=== PATIENT | male | born 1945 | race Caucasian/White ===

== ENCOUNTER 2018-08-25 18:47 | Observation (INO) ==
[2018-08-25 19:34] LABS: Hematocrit 39.6 % (37.5-50.1); Hemoglobin 13.5 g/dL (12.9-16.9); Mean Corpuscular HGB Conc 34.1 g/dL (31.6-35.5); Mean Corpuscular Hemoglobin 29.3 pg (28.0-33.3); Mean Corpuscular Volume 86.1 fL (83.0-100.0); Platelet Count 175 K/mcL (140-400); Red Cell Distribution Width 13.1 % (11.5-14.5); Segmented Neutrophils % 92.8 %
[2018-08-25 19:35] LABS: Basophils % 0.1 %; Eosinophils # 0.1 K/mcL (0.0-0.6); Eosinophils % 0.4 %; Immature Granulocytes % 0.9 % (0-4); Lymphocytes # 0.2 K/mcL (0.6-4.6); Lymphocytes % 1.5 %; Monocytes # 0.6 K/mcL (0.0-1.3); Monocytes % 4.3 %; Neutrophils # 13.2 K/mcL (1.6-8.9)
[2018-08-25 19:41] LABS: INR 1.3; Prothrombin Time 14.6 Seconds (9.4-12.1)
--- NOTE | 2018-08-25 19:42 | Emergency Department Note ---
Disposition Clinical Impression: Generalized weakness, Acute kidney injury Chest pain Qualifiers: Chest pain type: unspecified Qualified Code(s): R07.9 - Chest pain, unspecified Disposition: Admitted As Inpatient Condition: Good Time of Disposition: 20:44 Chest Pain HPI - General Chief Complaint: ED Chest Pain Stated Complaint: chest pain, weakness Time Seen by Provider: 08/25/18 18:53 Source: patient, family Limitations: physical limitation Vital Signs Reviewed: Yes Nursing Notes Reviewed: Yes - History of Present Illness HPI Narrative: 72-year-old male history of CAD 1 stent, hypertension, diabetes, chronic Jovel presents to the emergency department with chest pain and weakness. Over the past 24 hours reports of weakness increased tiredness and intermittent chest pain. He woke up around noon with intermittent chest pain described as an ache in the midsternal left chest wall without radiation or associated shortness of breath nausea or diaphoresis. Symptoms lasted approximately a few minutes and initially resolved on his own. He had recurrence and then took 2 baby aspirin. He did not have his nitroglycerin available or else he would have taken it. He is currently chest pain free over the past 3 hours. Denies any leg swelling. He is currently being treated for urinary tract infection with Bactrim on day 3. He has been feeling warm at home but no documented fevers. No cough or congestion. States that has been several years since his last cardiac evaluation by the [facility]. he has a chronic indwelling Jovel catheter due to bladder issues over the past year. He currently follows with the [facility] in [place]. His stent was placed in [facility] in 2001 Pt complaint: chest pain Severity scale (1-10): 3 - Related Data Home Medications Medication Instructions Recorded Confirmed Albuterol Sulfate [Albuterol 90 mcg IH Q4-6H PRN 08/25/18 08/25/18 Inhaler] Atorvastatin [Lipitor] 40 mg PO HS 08/25/18 08/25/18 Lantus 30 units SQ BID 08/25/18 08/25/18 Meclizine 12.5 mg PO TID 08/25/18 08/25/18 Metoprolol 50 mg PO DAILY 08/25/18 08/25/18 Nitroglycerin 0.4 mg SL Q5MIN 08/25/18 08/25/18 Novolog 26 units SQ TID 08/25/18 08/25/18 Omeprazole 20 mg PO BID 08/25/18 08/25/18 Phenazopyridine 50 mg PO DAILY PRN 08/25/18 08/25/18 Tiotropium 2.5 mcg 08/25/18 Tramadol HCl 50 mg BID 08/25/18 08/25/18 Allergies Allergy/AdvReac Type Severity Reaction Status Date / Time bacitracin AdvReac Rash Verified 01/30/18 08:57 [From Neosporin ([id number])] Neomycin AdvReac Rash Verified 01/30/18 08:57 [From Neosporin ([id number])] polymyxin B AdvReac Rash Verified 01/30/18 08:57 [From Neosporin ([id number])] All systems ED: reviewed and negative except as stated. Review of Systems: As Per HPI Constitutional: Reports: fever (Tactile), weakness. Denies: chills ENT ED: Denies: congestion Cardiovascular: Reports: chest pain Respiratory: Denies: cough, dyspnea Gastrointestinal: Denies: abdominal pain, nausea Genitourinary: Reports: as per HPI Musculoskeletal: Denies: back pain Integumentary: Denies: rash, abrasion Neurological: Denies: headache, confusion Chest Pain PMH - Past Medical History Medical history: Reports: arthritis, cancer, COPD, coronary artery disease, diabetes, GERD, hypertension, myocardial infarction Surgical history: Reports: appendectomy Psychiatric history: Reports: no psych history - Social History Smoking Status: Former smoker Alcohol use: Reports: none Drug use: Reports: none Physical Exam - General Limitations: physical limitation General appearance: alert, obese - Head Head exam: atraumatic, normocephalic, normal inspection - Eye Eye exam: Present: normal appearance, PERRL, EOMI - ENT ENT exam: normal exam, normal oropharynx, mucous membranes dry, other (appears dehydrated with chapped lips) - Neck Neck exam: Present: normal inspection, full ROM, trachea midline - Chest Chest inspection: Present: normal inspection, symmetric chest wall rise - Respiratory Respiratory exam: Present: normal lung sounds bilaterally. Absent: respiratory distress, wheezes - Cardiovascular Cardiovascular exam: Present: regular rate, normal rhythm, normal heart sounds. Absent: systolic murmur, diastolic murmur - Expanded Cardiovascular Exam Peripheral pulses: 2+: radial (R), radial (L) - Abdominal Exam Abdominal exam: Present: soft, Non-Tender, normal bowel sounds. Absent: te nderness, distention, guarding, rebound, rigidity - Male exam: Present: other (Chronic indwelling Jovel catheter) - Extremities Exam Extremities exam: Present: normal inspection, full ROM, normal capillary refill. Absent: tenderness, pedal edema, calf tenderness - Back Exam Back exam: Present: normal inspection, full ROM. Absent: tenderness - Neurological Exam Neurological exam: Present: alert, oriented X3 - Psychiatric Psychiatric exam: Present: normal affect, normal mood - Skin Skin exam: Present: warm, dry, intact, normal color. Absent: rash, cyanosis, diaphoresis Course Course Narrative: Patient presents with chest pain and weakness. Currently being treated for urinary tract infection. Chest pain free at this time. History of 1 stent placement. Chest pain workup initiated. He has a chronic indwelling catheter and will obtain a urinalysis from new catheter. He has taken 324 mg aspirin at home. - Reevaluation(s) Reevaluation #1: Troponin 0.03. Mild leukocytosis. He does have what appears to be acute kidney injury 1.4 creatinine, no prior. Chest x-ray did not reveal any abnormal findings. He continues to be chest pain free. Patient will be admitted for chest pain workup given his history. Will also treat them with Rocephin for his suspected urinary tract infection that he has been treated for 3 days. We will exchange is fully catheter in and send down urinalysis and culture. Patient was slightly hypotensive and will give 500 mL normal saline bolus. Impression is chest pain, weakness and acute kidney injury. Time: 20:48 - Consultations Consultation #1: Spoke with on-call hospitalist mary grace Fernandez to admit for chest pain and weakness with YAO and concomitant UTI. No further orders at this time. Time: 20:55 Vital Signs Temperature 98.3 F 08/25/18 19:03 Pulse Rate 81 08/25/18 19:03 Respiratory Rate 20 08/25/18 19:03 Blood Pressure 96/21 08/25/18 19:03 O2 Sat by Pulse Oximetry 94 08/25/18 19:03 Temperature 98.3 F 08/25/18 19:03 Pulse Rate 80 08/25/18 20:54 Respiratory Rate 16 08/25/18 20:54 Blood Pressure 110/57 01/26/19 20:54 O2 Sat by Pulse Oximetry 96 08/25/18 20:54 Oxygen Delivery Oxygen Delivery Room Air Chest Pain - MDM Narrative Medical decision making narrative: Patient was discussed with my attending physician who agrees with ED management and final disposition. They independently evaluated the patient. Please refer to their attestation to this encounter for additional information. This note was generated by [employer] voice recognition software and as a result grammatical or spelling errors may occur using this program. - Medical Records Medical records reviewed: Yes I reviewed the patient's medical records. - Lab Data Lab results reviewed: Yes I reviewed the patient's lab results. Result diagrams: 08/25/18 19:03 08/25/18 19:21 Lab Results 08/25/18 08/25/18 08/25/18 Range/Units 18:53 19:03 19:21 WBC 14.2 H (4.3-11.1) K/mcL RBC 4.60 (4.19-5.50) M/mcL Hgb 13.5 (12.9-16.9) g/dL Hct 39.6 (37.5-50.1) % MCV 86.1 (83.0-100.0) fL MCH 29.3 (28.0-33.3) pg MCHC 34.1 (31.6-35.5) g/dL RDW 13.1 (11.5-14.5) % Plt Count 175 (140-400) K/mcL MPV 10.0 (9.4-12.4) fL Immature Gran % 0.9 (0-4) % Seg Neutrophils % 92.8 % Lymphocytes % 1.5 % Monocytes % 4.3 % Eosinophils % 0.4 % Basophils % 0.1 % Neutrophils # 13.2 H (1.6-8.9) K/mcL Lymphocytes # 0.2 L (0.6-4.6) K/mcL Monocytes # 0.6 (0.0-1.3) K/mcL Eosinophils # 0.1 (0.0-0.6) K/mcL Basophils # 0.0 (0.0-0.2) K/mcL PT 14.6 H (9.4-12.1) Seconds INR 1.3 APTT 26.6 (26.0-36.0) Seconds Sodium 131 L (136-145) mEq/L Potassium 4.3 (3.5-5.1) mEq/L Chloride 99 (98-107) mEq/L Carbon Dioxide 21 L (23-29) mEq/L BUN 20 (8-23) mg/dL Creatinine 1.42 H (0.70-1.30) mg/dL Est GFR ( Amer) 59 L (> 60) Est GFR (Non-Af Amer) 49 L (> 60) BUN/Creatinine Ratio 14 (6-26) Glucose 315 H (70-105) mg/dL Calculated Osmolality 287 (280-300) Calcium 8.9 (8.6-10.3) mg/dL Troponin I 0.03 (< 0.04) ng/mL - Radiology Data Radiology results reviewed: Yes I reviewed the patient's radiology results. Chest X-Ray 08/25/18 18:53 IMPRESSION: No evidence of acute cardiopulmonary disease. D/ / David Andrade MD / David Andrade MD Interpreting Provider: David Andrade MD - EKG Data EKG attestation: Yes I reviewed and interpreted this EKG. EKG results narrative: EKG performed 1902 rhythm of 79 beats per minute with Q waves seen in the inferior leads, good R wave progression, no ST elevation or depression, QTC prolonged at 651. There is no old EKG available for comparison at this time. No acute ischemic changes. Heart Score - Score History: Slightly Suspicious EKG: Non Specific repolarisation Disturbance Age: Greater than 65 Risk Factors: Equal/Greater than 3 risk factor or history of atherosclerotic disease Troponin: 1-3x normal limit HEART Score Total: 6 Attestation Statement - Attestation Attestation: I, Tato Pitts, examined this patient and my medical decision-making was reviewed with the BASKETBALL PLAYER/PA/Advanced Practice Nurse/Resident Physician. I agree with the documented findings, disposition and treatment plan as described except to the extent set forth below. 72-year-old male presents emergency Department with concerns of acute onset chest pain as well as weakness and fatigue over the past 4 hours. Patient has a history of 3 stents, he reported chest pain that was a pressure in the center of his chest that did not radiate earlier today. It was associated with diaphoresis and shortness of breath. Denies recent trauma. Patient does have a chronic Jovel and states he had a subjective fever. Jovel is not been changed in the past 3 weeks. No cough, chills, vomiting, diarrhea, hematochezia, melena. Initial troponin negative. EKG did not show evidence of acute STEMI. Patient felt comfortable with plan for admission to hospital for further care and evaluation.
[2018-08-25 19:44] LABS: Activated Partial Thrombo Time 26.6 Seconds (26.0-36.0)
[2018-08-25] MEDS ORDERED: 0.9 % Sodium Chloride 500 ML IVC ONE (19:48)
[2018-08-25] MEDS ORDERED: Lidocaine Jelly 6ml 1 APPL/6 ML JEL.PF.APP TP ONE (20:15)
[2018-08-25 20:32] LABS: Troponin I 0.03 ng/mL (< 0.04)
[2018-08-25 20:33] LABS: Calcium 8.9 mg/dL (8.6-10.3); Potassium 4.3 mEq/L (3.5-5.1)
[2018-08-25] MEDS ORDERED: cefTRIAXone 1,000 MG in Water for inj. (sterile) 20 ML 10 ML IVP ONE (20:52)
[2018-08-25] MEDS ORDERED: Aspirin 81 MG TAB.CHEW PO ONE (21:12)
[2018-08-25 22:02] LABS: Bilirubin,Urine Negative (Negative); Blood,Urine Large (Negative); Clarity,Urine Cloudy (Clear); Color,Urine Yellow (Yellow); Glucose,Urine (UA) >=1000 mg/dL (Normal); Ketones,Urine Negative (Negative); Leukocyte Esterase,Urine Moderate (Negative); Nitrite,Urine Negative (Negative); PH,Urine 5.5 pH Units (5.0-8.0); Protein,Urine 30 mg/dL (Neg-Trace); Specific Gravity,Urine > 1.030 (1.010-1.025); Urobilinogen,Urine Normal (Normal)
[2018-08-25 22:03] LABS: Bacteria,Urine None Seen per hpf (None-Few); Hyaline Casts,Urine None Seen per lpf (None-Few); Squamous Epithelial Cell,Urine Many per lpf (None-Few); WBC,Urine TNTC per hpf (0-3)
[2018-08-26] MEDS ORDERED: Naloxone 0.4 MG/ML INJ IVP PRN (00:36)
--- NOTE | 2018-08-26 00:45 | Internal Med History&Physical ---
Date of Encounter: 08/26/18 Time of Encounter: 02:15 Internal Medicine - H&P: HPI Chief complaint: Chest pain Admitted From: Emergency Dept Plans for Post Hospital Care: Home History of present illness: Mr. Malone is a 72 year old male Patient presented to the emergency room with chest pain. He says over the last 24 hours he has had some weakness and intermittent chest pain that began after he woke up around noon. He describes it as a dull ache in the mid sternal left side of his chest without radiation or shortness of breath. The symptoms last for a few minutes and then resolve once they recurred he tried taking 2 baby aspirins at home. Upon arrival to the ER he had been chest pain-free for the last 3 hours. Of note patient was being treated for urinary tract infection outpatient and was on day 3 of his Bactrim. He typically follows up with the [facility] and it has been several years since his last evaluation for heart problems. He has a chronic indwelling Jovel catheter due to urinary dysfunction. In the emergency room patient's vital signs initially were within normal limits, CBC showed a white count of 14.2 but otherwise within normal limits. Patient's INR was 1.3, BMP showed sodium of 131 creatinine of 1.42 and a glucose of 315. Urinalysis showed large blood but negative nitrites and moderate leukocyte esterase. Chest x-ray performed showed no acute cardiopulmonary disease. Patient's initial troponin was 0.03. EKG showed normal sinus rhythm with no ST elevations or depressions. He was admitted to the hospital for further workup and management. Upon my evaluation, patient states that he has feeling much better. His chest pain has nearly resolved. He denies nausea, vomiting, diarrhea, constipation and abdominal pain. He is lying comfortably in the hospital bed. Past Med Surg Social Fam HX - Past Medical History Medical history: arthritis, cancer, COPD, coronary artery disease, diabetes, GERD, hypertension, myocardial infarction Additional medical history: diverticulosis,chf, Prostate cancer, Alexei's esophagus Psychiatric history: no psych history - Past Surgical History Surgical History: appendectomy Additional surgical history: heart cath - Social History Smoking Status: Former smoker Alcohol use: none Drug use: none - Family History Mother Hx Family Psychosocial Disorders: Yes (ETOH) Father Hx Family Cardiac Disorders: Yes (RI, CHF) Internal Medicine - H&P: Meds Albuterol Sulfate [Albuterol Inhaler] 90 mcg IH Q4-6H PRN 08/25/18 [History] Atorvastatin [Lipitor] 40 mg PO HS 08/25/18 [History] Lantus 30 units SQ BID 08/25/18 [History] Meclizine 12.5 mg PO TID 08/25/18 [History] Metoprolol 50 mg PO DAILY 08/25/18 [History] Nitroglycerin 0.4 mg SL Q5MIN 08/25/18 [History] Novolog 26 units SQ TID 08/25/18 [History] Omeprazole 20 mg PO BID 08/25/18 [History] Phenazopyridine 50 mg PO DAILY PRN 08/25/18 [History] Tiotropium 2.5 mcg 08/25/18 [History] Tramadol HCl 50 mg BID 08/25/18 [History] Allergy/AdvReac Type Severity Reaction Status Date / Time bacitracin AdvReac Rash Verified 01/30/18 08:57 [From Neosporin ([id number])] Neomycin AdvReac Rash Verified 01/30/18 08:57 [From Neosporin ([id number])] polymyxin B AdvReac Rash Verified 01/30/18 08:57 [From Neosporin ([id number])] All Systems PM: A 10-system review of systems was performed and is negative for pertinent findings except as documented above in the HPI. - Constitutional Vitals: Temp Pulse Resp BP Pulse Ox 98.2 F 72 16 127/79 92 08/25/18 22:17 08/25/18 22:17 08/25/18 22:17 08/25/18 22:17 08/25/18 22:17 General appearance: Present: cooperative, A&O X 3, pleasant, no acute distress, answers questions appropriately Exam: - - Head Head exam: Present: normal inspection - Eye Eye exam: Present: EOMI, normal appearance - Respiratory Respiratory exam: Present: CTAB. Absent: rales, respiratory distress, rhonchi, wheezes - Cardiovascular Cardiovascular exam: Present: RRR. Absent: diastolic murmur, systolic murmur - GI/Abdominal GI/Abdominal exam: Present: normal bowel sounds, soft. Absent: tenderness - Extremities Exam Extremities exam: Present: warm, radial pulses palpable and symmetrical. Absent: calf tenderness, pedal edema, tenderness - Neurological Exam Neurological exam: Present: no focal deficits, strengths equal and symetr throughout. Absent: motor sensory deficit, facial droop, speech deficit - Skin Skin exam: Present: dry, normal color, warm Internal Med - H&P Results - Labs CBC & Chem 7: 08/26/18 01:42 08/26/18 01:42 Labs: Short CBC 08/25/18 Range/Units 19:03 WBC 14.2 H (4.3-11.1) K/mcL Hgb 13.5 (12.9-16.9) g/dL Hct 39.6 (37.5-50.1) % Plt Count 175 (140-400) K/mcL Neutrophils # 13.2 H (1.6-8.9) K/mcL BMP 08/25/18 19:21 Sodium 131 L Potassium 4.3 Chloride 99 Carbon Dioxide 21 L BUN 20 Creatinine 1.42 H Glucose 315 H Calcium 8.9 Cardiac Enzymes 08/25/18 Range/Units 19:21 Troponin I 0.03 (< 0.04) ng/mL Urine 08/25/18 Range/Units 21:53 Urine Color Yellow (Yellow) Urine Clarity Cloudy A (Clear) Urine pH 5.5 (5.0-8.0) pH Units Ur Specific [place] > 1.030 H (1.010-1.025) Urine Protein 30 H (Neg-Trace) mg/dL Urine Glucose (UA) >=1000 H (Normal) mg/dL - Impressions ITS Impressions Chest X-Ray 08/25/18 18:53 IMPRESSION: No evidence of acute cardiopulmonary disease. D/ / David Andrade MD / David Andrade MD Interpreting Provider: David Andrade MD - Assessment and plan (1) Chest pain Current Visit: Yes Status: Acute Assessment and plan: Patient chest pain improved. Initial troponin emergency room 0.03. EKG in the emergency room showed no acute ischemic changes but did show a prolonged QTC of 651. Continue to trend troponins Cardiac monitoring Echocardiogram in the morning Repeat EKG in the morning Qualifiers: Chest pain type: unspecified Qualified Code(s): R07.9 - Chest pain, un specified (2) Urinary tract infection Current Visit: Yes Status: Acute Assessment and plan: Urine culture obtained in the emergency room, patient was already started treatment outpatient. Follow-up urine culture Continue ceftriaxone Monitor for worsening signs of infection Qualifiers: Urinary tract infection type: catheter-associated UTI Indwelling urinary catheter type: indwelling urethral catheter Encounter type: initial encounter Qualified Code(s): T83.511A - Infection and inflammatory reaction due to indwelling urethral catheter, initial encounter; N39.0 - Urinary tract infection, site not specified (3) Hematuria Current Visit: Yes Status: Acute Assessment and plan: Patient did have blood on his urinalysis. He does have a Jovel catheter placed however could be related to traumatic catheter. Follow-up with repeat UA after treatment of urinary tract infection completed to monitor for resolution Qualifiers: Hematuria type: unspecified type Qualified Code(s): R31.9 - Hematuria, unspecified (4) Diabetes Current Visit: Yes Status: Acute Assessment and plan: Patient is an insulin-dependent diabetic. Blood sugars in the emergency room were 315 Diabetic diet Continue to monitor sugars with meals and at night Insulin sliding scale as needed Qualifiers: Diabetes mellitus type: type 2 Diabetes mellitus shelter insulin use: with oysterman use Diabetes mellitus complication status: with hyperglycemia Qualified Code(s): E11.65 - Type 2 diabetes mellitus with hyperglycemia; Z79.4 - correction (current) use of insulin (5) Acute kidney injury Current Visit: Yes Status: Acute Assessment and plan: Patient's creatinine elevated to 1.42. Unclear if he has history of kidney disease IV fluid hydration Repeat labs in the morning (6) Hyponatremia Current Visit: Yes Status: Acute Assessment and plan: Patient's sodium 131 in the emergency room. IV fluid hydration Repeat labs in the morning (7) DVT prophylaxis Current Visit: Yes Status: Acute Assessment and plan: Subcutaneous heparin - Time Spent With Patient Total time spent is greater than 50% in coordination of care (as documented) at patient's floor/unit and/or counseling patient: Greater than 35 minutes
[2018-08-26 01:53] LABS: Hematocrit 36.1 % (37.5-50.1); Hemoglobin 12.4 g/dL (12.9-16.9); Mean Corpuscular HGB Conc 34.3 g/dL (31.6-35.5); Mean Corpuscular Hemoglobin 29.5 pg (28.0-33.3); Mean Platelet Volume 9.9 fL (9.4-12.4); Platelet Count 146 K/mcL (140-400); Red Cell Distribution Width 13.4 % (11.5-14.5)
[2018-08-26 02:13] LABS: BUN/Creatinine Ratio 16 (6-26); Blood Urea Nitrogen 21 mg/dL (8-23); Calcium 8.5 mg/dL (8.6-10.3); Carbon Dioxide 20 mEq/L (23-29); Chloride 99 mEq/L (98-107); Glucose 288 mg/dL (70-105); Osmolality,Calculated 284 (280-300); Sodium 130 mEq/L (136-145); eGFR For Non-African Americans 54 (> 60)
[2018-08-26] MEDS ORDERED: 0.9 % Sodium Chloride 1,000 ML IVC ONE (04:11)
[2018-08-26] MEDS: Acetaminophen 325 MG TABLET PO PRN ×3 (04:28→19:17)
[2018-08-26] MEDS ORDERED: D5% in Water 1,000 ML IVC PRN (04:29)
[2018-08-26] MEDS ORDERED: Dextrose Gel 15 GM/37.5 ML TUBE PO PRN ×2 (04:29)
[2018-08-26] MEDS ORDERED: *HR* Dextrose 50 % in Water (Syg) 50 ML SYRINGE IVP PRN (04:29)
[2018-08-26] MEDS: *HR* Heparin 5,000 UNIT/ML VIAL SQ SCH ×2 (06:07→18:04)
[2018-08-26] MEDS: Insulin LISPRO 300 UNITS/3 ML VIAL SQ SCH ×3 (08:26→16:00)
[2018-08-26] MEDS ORDERED: NON-FORMULARY MEDICATION 1 EACH EACH (Nitroglycerin 0.4 MG) SL SCH (12:00)
--- NOTE | 2018-08-26 12:32 | Event Note ---
Date of Encounter: 08/26/18 Time of Encounter: 12:01 Patient was seen and examined by hospitalist earlier this morning. Today patient states he does not feel any better than when he presented. He denies chest pain however he states that his pains not constant it is worse when he coughs and the was at bedside states that he has been not feeling well since Monday. She endorses that he has had fevers off and on since Monday as well as a cough and general malaise and weakness. Patient did receive fluid overnight and his creatinine did improve however he continues to have hyponatremia which I suspect is secondary to hyperglycemia. We will continue to monitor electrolytes closely. Continue with patient's basal insulin as well as sliding scale troponins have been negative 3 echo is pending at this time chest x-ray has been negative however I will check a CT of chest rule out any possibility of pneumonia he does have a COPD history sats are 90-92% on room air normally does not require supplemental oxygen. Repeat EKG does show sinus rhythm with first-degree AV block and PVCs Lung sounds are diminished continues to have a moist nonproductive cough and low-grade fever. Consult cardiology as needed Continue with Rocephin. I did discuss the plan with the patient and his were at bedside both verbalized understanding.
[2018-08-26] MEDS ORDERED: Nitroglycerin 0.4 MG TAB.SUBL SL PRN (13:08)
[2018-08-26 15:53] LABS: BUN/Creatinine Ratio 16 (6-26); Blood Urea Nitrogen 19 mg/dL (8-23); Carbon Dioxide 23 mEq/L (23-29); Chloride 100 mEq/L (98-107); Glucose 216 mg/dL (70-105); Osmolality,Calculated 279 (280-300); Potassium 3.6 mEq/L (3.5-5.1); Sodium 130 mEq/L (136-145); eGFR For Non-African Americans 59 (> 60)
[2018-08-26] MEDS: cefTRIAXone 1,000 MG in Water for inj. (sterile) 20 ML 10 ML IVP SCH (16:00)
[2018-08-26] MEDS ORDERED: Insulin LISPRO 300 UNITS/3 ML VIAL SQ SCH (21:00)
[2018-08-26] MEDS: Insulin DETEMIR 100 UNIT/ML X5UNITS SQ SCH (21:56)
[2018-08-27] MEDS: *HR* Heparin 5,000 UNIT/ML VIAL SQ SCH ×2 (05:00→16:57)
[2018-08-27 06:51] LABS: Chol/HDL Ratio 4.6 (0-4.9)
[2018-08-27] MEDS: Insulin DETEMIR 100 UNIT/ML X5UNITS SQ SCH (08:05)
[2018-08-27] MEDS: cefTRIAXone 1,000 MG in Water for inj. (sterile) 20 ML 10 ML IVP SCH (08:05)
[2018-08-27] MEDS: Insulin LISPRO 300 UNITS/3 ML VIAL SQ SCH ×3 (08:11→16:56)
--- NOTE | 2018-08-27 09:26 | Electrocardiograph Report ---
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
[2018-08-27 14:22] LABS: BUN/Creatinine Ratio 19 (6-26); Blood Urea Nitrogen 18 mg/dL (8-23); Calcium 8.3 mg/dL (8.6-10.3); Carbon Dioxide 25 mEq/L (23-29); Chloride 101 mEq/L (98-107); Glucose 253 mg/dL (70-105); Osmolality,Calculated 284 (280-300); Potassium 3.8 mEq/L (3.5-5.1); Sodium 132 mEq/L (136-145); eGFR For Non-African Americans > 60 (> 60)
[2018-08-27] MEDS ORDERED: Isovue-370 500 ML BOTTLE IVP ONE (14:24)
[2018-08-27 15:45] VITALS: BP 104/61
--- NOTE | 2018-08-27 16:58 | Discharge Summary ---
- NOTES TO OUTPATIENT PROVIDER Notes to Outpatient Provider: PCP in 5 to 7 days Orders not resulted at time of discharge: Pending orders 08/25/18 21:53 Culture,Urine [RM] Stat 08/26/18 06:00 EKG [ECG 12 lead ECG] [ECG] AM 0600 08/26/18 11:56 Culture,Urine [RM] Routine 08/27/18 13:30 Respiratory Infection Panel [MOLMIC] Routine Date of Encounter: 08/27/18 Time of Encounter: 16:57 - Discharge Diagnosis (1) Chest pain Priority: Primary Status: Acute Assessment and Plan: Pt denies Chest pain or SOB and states completely resolved. Troponin neg x 3. EKG showed normal sinus rhythm with no ST elevations or depressions. Echo reviewed unremarkable. Follow up out pt with PCP. 6 minute walk test on room air was 90% with activity. CTA chest neg for PE CT/CT angio chest IMPRESSION: 1. No evidence for acute pulmonary embolism. 2. Scattered calcified and noncalcified mediastinal lungs along with punctate calcifications in the spleen and the middle lobe calcified nodule most suggestive of granulomatous disease. Some of the nodules in the mediastinum could be reactive. 3. Resolving subsegmental atelectasis at lung bases. Qualifiers: Chest pain type: unspecified Qualified Code(s): R07.9 - Chest pain, unspecified (2) Diabetes Priority: Secondary Status: Acute Assessment and Plan: Resume home medication. 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 (4) Hematuria Priority: Secondary Status: Acute Assessment and Plan: Likely due to mehta being placed. Has indwelling mehta following radiation changes. Follow up out pt with [facility] as scheduled Qualifiers: Hematuria type: unspecified type Qualified Code(s): R31.9 - Hematuria, unspecified (5) Hyponatremia Priority: Secondary Status: Acute Assessment and Plan: improved on IVF. follow up out pt with PCP for BMP monitoring (6) Urinary tract infection Priority: Secondary Status: Acute Assessment and Plan: Will DC on few days of antibiotic, likely omnicef. Qualifiers: Urinary tract infection type: catheter-associated UTI Indwelling urinary catheter type: indwelling urethral catheter Encounter type: initial encounter Qualified Code(s): T83.511A - Infection and inflammatory reaction due to indwelling urethral catheter, initial encounter; N39.0 - Urinary tract infection, site not specified (7) Prostate CA Priority: Secondary Status: Acute Assessment and Plan: Pt is s/p radiation. Has indwelling mehta following radiation changes. Hospital course: History of present illness: Dr. Holt Mr. Malone is a 72 year old male Patient presented to the emergency room with chest pain. He says over the last 24 hours he has had some weakness and intermittent chest pain that began after he woke up around noon. He describes it as a dull ache in the mid sternal left side of his chest without radiation or shortness of breath. The symptoms last for a few minutes and then resolve once they recurred he tried taking 2 baby aspirins at home. Upon arrival to the ER he had been chest pain-free for the last 3 hours. Of note patient was being treated for urinary tract infection outpatient and was on day 3 of his Bactrim. [facility] and [facility] has been several years since his last evaluation for heart problems. He has a chronic indwelling Mehta catheter due to urinary dysfunction. In the emergency room patient's vital signs initially were within normal limits, CBC showed a white count of 14.2 but otherwise within normal limits. Patient's INR was 1.3, BMP showed sodium of 131 creatinine of 1.42 and a glucose of 315. Urinalysis showed large blood but negative nitrites and moderate leukocyte esterase. Chest x-ray performed showed no acute cardiopulmonary disease. Patient's initial troponin was 0.03. EKG showed normal sinus rhythm with no ST elevations or depressions. He was admitted to the hospital for further workup and management. Upon my evaluation, patient states that he has feeling much better. His chest pain has nearly resolved. He denies nausea, vomiting, diarrhea, constipation and abdominal pain. He is lying comfortably in the hospital bed. Dr. Medeiros See A/P for hospital course Discharge discussed with: patient - Time Spent with Patient Total time spent providing and/or coordinating discharge services: Greater than 30 minutes - Discharge Medications Home Medications: Albuterol Sulfate [Albuterol Inhaler] 1 puff IH Q4H PRN 08/27/18 [History] Aspirin [Adult Aspirin] 81 mg PO DAILY 08/27/18 [History] Atorvastatin Calcium 40 mg PO QPM 08/27/18 [History] Cetirizine HCl [All Day Allergy] 5 mg PO DAILY 08/27/18 [History] Diclofenac Sodium 4 gm TP QID PRN 08/27/18 [History] Insulin ASPART [Novolog Flexpen] 26 unit SQ TID 08/27/18 [History] Insulin Glargine [Lantus] 32 unit SQ QAM 08/27/18 [History] Insulin Glargine [Lantus] 38 unit SQ QPM 08/27/18 [History] Isosorbide MONOnitrate [Isosorbide Mononitrate ER] 30 mg PO DAILY 08/27/18 [History] Meclizine [Antivert] 25 mg PO TID 08/27/18 [History] Metoprolol Succinate [Toprol Xl] 50 mg PO DAILY 08/27/18 [History] Nitroglycerin [Nitrostat] 0.4 mg SL Q5M PRN 08/27/18 [History] Nystatin Cream [Mycostatin Cream] 1 appl TP DAILY PRN 08/27/18 [History] Omeprazole [PriLOSEC] 20 mg PO BID 08/27/18 [History] Phenazopyridine [Pyridium] 50 mg PO DAILY PRN 08/27/18 [History] Polyethylene Glycol 3350 [Natura-Lax] 1 cap PO DAILY PRN 08/27/18 [History] Sulfamethoxazole/Trimeth DS [Bactrim DS] 1 tab PO BID 08/27/18 [History] Tiotropium [place] [Spiriva Respimat] 2 puff IH DAILY 08/27/18 [History] Tramadol HCl [Ultram] 50 mg PO BID PRN 08/27/18 [History] Allergies/Adverse Reactions: Allergy/AdvReac Type Severity Reaction Status Date / Time Penicillins Allergy See Verified 08/27/18 15:00 Comments bacitracin AdvReac "SWELL UP, Verified 08/27/18 15:00 [From Neosporin HIVES" ([id number])] Neomycin AdvReac "SWELL UP, Verified 08/27/18 15:00 [From Neosporin HIVES" ([id number])] polymyxin B AdvReac "SWELL UP, Verified 08/27/18 15:00 [From Neosporin HIVES" ([id number])] Date of admission: 08/25/18 20:56 Primary care physician: PCP NONE Consults: 08/26/18 12:35 Consult to Physical Therapy [CONS] Routine Comment: Evaluate, develop and implement POC Reason for Consult: weakness Does patient have active BEDREST order?: No Is patient medically & hemodynamically stable?: Yes Patient assessed for mobility or mobilized this visit?: No 08/26/18 12:36 Consult to Occupational Therapy [CONS] Routine Comment: Evaluate, develop and implement POC Reason for Consult: weakness Does patient have active BEDREST order?: No Is patient medically & hemodynamically stable?: Yes Patient assessed for mobility or mobilized this visit?: No Discharging clinician: Yusra Medeiros Anticipated date of discharge: 08/27/18 - Constitutional Vitals: Temp Pulse Resp BP Pulse Ox 98.6 F 74 14 104/61 92 08/27/18 15:40 08/27/18 15:40 08/27/18 15:40 08/27/18 15:40 08/27/18 15:40 General appearance: Present: cooperative, A&O X 3, pleasant, no acute distress, answers questions appropriately Exam: General appearance: Present: cooperative, A&O X 3, pleasant, no acute distress, answers questions appropriately Exam: - Head Head exam: Present: normal inspection - Eye Eye exam: Present: EOMI, normal appearance - Respiratory Respiratory exam: Present: CTAB. Absent: rales, respiratory distress, rhonchi, wheezes - Cardiovascular Cardiovascular exam: Present: RRR. Absent: diastolic murmur, systolic murmur - GI/Abdominal GI/Abdominal exam: Present: normal bowel sounds, soft. Absent: tenderness - Extremities Exam Extremities exam: Present: warm, radial pulses palpable and symmetrical. Absent: calf tenderness, pedal edema, tenderness - Neurological Exam Neurological exam: Present: no focal deficits, strengths equal and symetr throughout. 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 Please call and make appointment to be seen in 5 to 7 days. ) - Diet and Activity Activity: increase activity as tolerated Diet: advance to your usual diet, diabetic diet
--- NOTE | 2018-08-27 19:21 | Physician Discharge Referral ---
Home Health/Hosp Referral Info Transfer to: Home Health Provider in Charge Post Discharge: PCP - Diagnosis (1) Chest pain Status: Acute (2) Diabetes Status: Acute (3) Acute kidney injury Status: Acute (4) Hematuria Status: Acute (5) Hyponatremia Status: Acute (6) Urinary tract infection Status: Acute (7) Prostate CA Status: Acute - Respiratory Orders Smoking Cessation: Smoking cessation has been advised. For more information, call the [place] Tobacco Quit Line at 2-627-CKTQ-NOW. - Services Needed Following services are medically necessary services: Nursing, Home Health Aide, Physical Therapy, Occupational Therapy - Transfer Medications Prescriptions: Cefdinir [Omnicef] 300 mg PO BID 7 Days #14 capsule Home Medications: Albuterol Sulfate [Albuterol Inhaler] 1 puff IH Q4H PRN 08/27/18 [History] Aspirin [Adult Aspirin] 81 mg PO DAILY 08/27/18 [History] Atorvastatin Calcium 40 mg PO QPM 08/27/18 [History] Cefdinir [Omnicef] 300 mg PO BID 7 Days #14 capsule 08/27/18 [Rx] Cetirizine HCl [All Day Allergy] 5 mg PO DAILY 08/27/18 [History] Diclofenac Sodium 4 gm TP QID PRN 08/27/18 [History] Insulin ASPART [Novolog Flexpen] 26 unit SQ TID 08/27/18 [History] Insulin Glargine [Lantus] 32 unit SQ QAM 08/27/18 [History] Insulin Glargine [Lantus] 38 unit SQ QPM 08/27/18 [History] Isosorbide MONOnitrate [Isosorbide Mononitrate ER] 30 mg PO DAILY 08/27/18 [History] Meclizine [Antivert] 25 mg PO TID 08/27/18 [History] Metoprolol Succinate [Toprol Xl] 50 mg PO DAILY 08/27/18 [History] Nitroglycerin [Nitrostat] 0.4 mg SL Q5M PRN 08/27/18 [History] Nystatin Cream [Mycostatin Cream] 1 appl TP DAILY PRN 08/27/18 [History] Omeprazole [PriLOSEC] 20 mg PO BID 08/27/18 [History] Phenazopyridine [Pyridium] 50 mg PO DAILY PRN 08/27/18 [History] Polyethylene Glycol 3350 [Natura-Lax] 1 cap PO DAILY PRN 08/27/18 [History] Tiotropium [place] [Spiriva Respimat] 2 puff IH DAILY 08/27/18 [History] Tramadol HCl [Ultram] 50 mg PO BID PRN 08/27/18 [History] Allergies/Adverse Reactions: Allergy/AdvReac Type Severity Reaction Status Date / Time Penicillins Allergy See Verified 08/27/18 15:00 Comments bacitracin AdvReac "SWELL UP, Verified 08/27/18 15:00 [From Neosporin HIVES" ([id number])] Neomycin AdvReac "SWELL UP, Verified 08/27/18 15:00 [From Neosporin HIVES" ([id number])] polymyxin B AdvReac "SWELL UP, Verified 08/27/18 15:00 [From Neosporin HIVES" ([id number])] Certification: Further, I certify that my clinical findings support that this patient is homebound (i.e. absences from home require considerable and taxing effort and are for medical reasons or jewish services or infrequently or short duration when for other reasons) because: Homebound Reason: Patient requires assistance of a person or device to safely leave home Attestation: My signature below is to certify that this patient is under my care and that I, or nurse practitioner, or a physician's data control assistant working with me, has a [id number] encounter with this patient.
--- NOTE | 2018-08-28 17:07 | Electrocardiograph Report ---
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
== END 2018-08-27 19:30 | disposition home or self-care (01) ==
LOC: 3BNU 18:47 → EMEROOARM 18:47 → 3BNU 22:00
PROVIDERS: ADMIT Pediatrics; ATTEND Pediatrics

== ENCOUNTER 2020-04-06 14:34 | Inpatient (IN) ==
[2020-04-06] MEDS ORDERED: 0.9 % Sodium Chloride 1,000 ML IVC ONE ×2 (15:00→15:26)
[2020-04-06] MEDS ORDERED: cefTRIAXone 1,000 MG in Water for inj. (sterile) 10 ML IVP ONE (15:06)
[2020-04-06] MEDS ORDERED: Azithromycin 500 MG in 0.9 % Sodium Chloride 250 ML IVPB ONE (15:06)
[2020-04-06] MEDS ORDERED: Vancomycin 1,500 MG/265 ML IV.SOLN IVPB ONE (15:15)
[2020-04-06 15:19] LABS: Basophils % 0.2 %
[2020-04-06 15:20] LABS: Basophils # 0.1 K/mcL (0.0-0.2); Eosinophils # 1.7 K/mcL (0.0-0.6); Eosinophils % 5.3 %; Hematocrit 34.5 % (37.5-50.1); Hemoglobin 11.6 g/dL (12.9-16.9); Immature Granulocytes % 2.4 % (0-4); Lymphocytes # 0.8 K/mcL (0.6-4.6); Lymphocytes % 2.6 %; Mean Corpuscular HGB Conc 33.6 g/dL (31.6-35.5); Mean Corpuscular Hemoglobin 28.6 pg (28.0-33.3); Mean Platelet Volume 9.9 fL (9.4-12.4); Monocytes # 1.6 K/mcL (0.0-1.3); Neutrophils # 27.3 K/mcL (1.6-8.9); Platelet Count 221 K/mcL (140-400); Red Blood Count 4.06 M/mcL (4.19-5.50); Red Cell Distribution Width 14.2 % (11.5-14.5); Segmented Neutrophils % 84.5 %
[2020-04-06 15:26] LABS: White Blood Count 32.3 K/mcL (4.3-11.1)
[2020-04-06 15:40] LABS: Calcium 9.1 mg/dL (8.6-10.3); Potassium 3.3 mEq/L (3.5-5.1)
[2020-04-06 15:44] LABS: Troponin I 0.05 ng/mL (< 0.04)
[2020-04-06 15:59] LABS: Platelet Estimate Slight Decrease (Normal)
[2020-04-06 17:55] LABS: Adenovirus Not Detected (Not Detect); Bordetella Pertussis Not Detected (Not Detect); Chlamydophila pneumoniae Not Detected (Not Detect); Coronavirus 229E Not Detected (Not Detect); Coronavirus HKU1 Not Detected (Not Detect); Coronavirus NL63 Not Detected (Not Detect); Coronavirus OC43 Not Detected (Not Detect); Human Metapneumovirus Not Detected (Not Detect); Human Rhinovirus/Enterovirus Not Detected (Not Detect); Influenza A Subtype 2009 H1 Not Detected (Not Detect); Influenza B Not Detected (Not Detect); Mycoplasma pneumoniae Not Detected (Not Detect); Parainfluenza Virus 1 Not Detected (Not Detect); Parainfluenza Virus 2 Not Detected (Not Detect); Parainfluenza Virus 3 Not Detected (Not Detect); Parainfluenza Virus 4 Not Detected (Not Detect); Respiratory Syncytial Virus Not Detected (Not Detect); SARS-CoV-2 Not Detected (Not Detect)
[2020-04-06 18:02] LABS: Bilirubin,Urine Negative (Negative); Blood,Urine Large (Negative); Clarity,Urine Ex.Turbid (Clear); Color,Urine Dark-Yellow (Yellow); Glucose,Urine (UA) Normal (Normal); Ketones,Urine Negative (Negative); Leukocyte Esterase,Urine Large (Negative); Nitrite,Urine Negative (Negative); PH,Urine 6.5 pH Units (5.0-8.0); Protein,Urine >=300 mg/dL (Neg-Trace); Specific Gravity,Urine 1.012 (1.010-1.025); Urobilinogen,Urine Normal (Normal)
[2020-04-06 18:05] LABS: Amorphous Sediment,Urine Many per hpf (None-Few); WBC,Urine TNTC per hpf (0-3)
[2020-04-06] MEDS ORDERED: Naloxone 0.4 MG/ML INJ IVP PRN (18:29)
[2020-04-06] MEDS ORDERED: polyethylene glycoL 3350 17 GM POWD.PACK PO PRN (18:36)
[2020-04-06] MEDS ORDERED: Nystatin Cream 15 GM TUBE TP PRN (18:36)
[2020-04-06] MEDS ORDERED: Nitroglycerin 0.4 MG TAB.SUBL SL PRN (18:36)
[2020-04-06] MEDS ORDERED: Dextrose Gel 15 GM/37.5 ML TUBE PO PRN ×2 (18:47)
[2020-04-06] MEDS ORDERED: *HR* Dextrose 50 % in Water (Vial) 50 ML VIAL IVP PRN (18:47)
[2020-04-06] MEDS ORDERED: D5% in Water 1,000 ML IVC PRN (18:47)
[2020-04-06] MEDS ORDERED: Albuterol 2.5 MG/3 ML NEBULIZER IH PRN (18:52)
[2020-04-06] MEDS: Ringers Solution, Lactated 1,000 ML IVC SCH (19:11)
[2020-04-06] MEDS: Norepinephrine 4 MG/254 ML IV.SOLN IVC SCH ×2 (19:12→20:02)
[2020-04-06] MEDS: Ipratropium/Albuterol Neb 3 ML IH SCH ×2 (20:01→23:30)
[2020-04-06 20:03] LABS: INR 1.5; Prothrombin Time 16.5 Seconds (9.4-12.1)
[2020-04-06 20:40] LABS: Calcium 7.7 mg/dL (8.6-10.3); Potassium 3.3 mEq/L (3.5-5.1)
[2020-04-06 20:54] LABS: Troponin I 0.06 ng/mL (< 0.04)
[2020-04-06 20:56] LABS: Thyroid Stimulating Hormone 0.925 mcIU/mL (0.340-5.600)
[2020-04-06] MEDS: Potassium Chloride 40 MEQ/200 ML BAG IVPB PRN (21:47)
[2020-04-06] MEDS: *HR* Heparin 5,000 UNIT/ML VIAL SQ SCH (22:42)
[2020-04-06] MEDS: Insulin LISPRO 300 UNITS/3 ML VIAL SQ SCH (23:37)
[2020-04-07 02:21] LABS: Estimated Average Glucose 166 mg/dl
[2020-04-07] MEDS: Ipratropium/Albuterol Neb 3 ML IH SCH ×6 (04:07→23:57)
[2020-04-07 04:30] LABS: Hematocrit 27.8 % (37.5-50.1); Hemoglobin 9.2 g/dL (12.9-16.9); Mean Corpuscular HGB Conc 33.1 g/dL (31.6-35.5); Mean Corpuscular Hemoglobin 28.5 pg (28.0-33.3); Mean Corpuscular Volume 86.1 fL (83.0-100.0); Mean Platelet Volume 9.7 fL (9.4-12.4); Platelet Count 139 K/mcL (140-400); Red Blood Count 3.23 M/mcL (4.19-5.50); Red Cell Distribution Width 14.5 % (11.5-14.5)
[2020-04-07 04:32] LABS: White Blood Count 34.9 K/mcL (4.3-11.1)
[2020-04-07 04:47] LABS: Magnesium 1.6 mg/dL (1.6-2.6); Potassium 3.5 mEq/L (3.5-5.1)
[2020-04-07 04:54] LABS: Lymphocytes # 1.4 K/mcL (0.6-4.6); Neutrophils # 32.8 K/mcL (1.6-8.9); Platelet Estimate Normal (Normal)
[2020-04-07] MEDS: Ringers Solution, Lactated 1,000 ML IVC SCH ×3 (05:32→23:20)
[2020-04-07 05:42] LABS: blaKPC Carbapenem-Resist Gene Not Detected (Not Detect); mecA Methicillin-Resist Gene Not Detected (Not Detect)
[2020-04-07 05:43] LABS: Acinetobacter baumannii by PCR Not Detected (Not Detect); Candida albicans by PCR Not Detected (Not Detect); Candida glabrata by PCR Not Detected (Not Detect); Candida krusei by PCR Not Detected (Not Detect); Candida parapsilosis by PCR Not Detected (Not Detect); Candida tropicalis by PCR Not Detected (Not Detect); Enterobacter cloacae Cmplx PCR Not Detected (Not Detect); Enterococcus by PCR Not Detected (Not Detect); Escherichia coli by PCR DETECTED (Not Detect); Klebsiella oxytoca by PCR Not Detected (Not Detect); Klebsiella pneumoniae by PCR Not Detected (Not Detect); Proteus by PCR Not Detected (Not Detect); Pseudomonas aeruginosa by PCR Not Detected (Not Detect); Serratia marcescens by PCR Not Detected (Not Detect); Staphylococcus aureus by PCR Not Detected (Not Detect); Staphylococcus by PCR Not Detected (Not Detect); Streptococcus agalactiae(B)PCR Not Detected (Not Detect); Streptococcus by PCR Not Detected (Not Detect); Streptococcus pneumoniae PCR Not Detected (Not Detect); Streptococcus pyogenes (A) PCR Not Detected (Not Detect); vanA/B Vancomycin-Resist Genes Not Detected (Not Detect)
[2020-04-07] MEDS ORDERED: Pantoprazole 40 MG VIAL IVP SCH (06:00)
[2020-04-07] MEDS: Insulin LISPRO 300 UNITS/3 ML VIAL SQ SCH ×4 (06:13→23:24)
[2020-04-07] MEDS: *HR* Heparin 5,000 UNIT/ML VIAL SQ SCH (06:13)
[2020-04-07] MEDS: Potassium Chloride 40 MEQ/200 ML BAG IVPB PRN ×2 (06:22→15:24)
[2020-04-07] MEDS: cefTRIAXone 1,000 MG in Water for inj. (sterile) 10 ML IVP SCH (08:01)
[2020-04-07] MEDS: Insulin DETEMIR 100 UNIT/ML X5UNITS SQ SCH (08:02)
[2020-04-07] MEDS: Loratadine 10 MG TABLET PO SCH (08:02)
[2020-04-07] MEDS ORDERED: Aspirin Enteric Coated 81 MG Tablet PO SCH (09:00)
[2020-04-07] MEDS ORDERED: Insulin DETEMIR 100 UNIT/ML X5UNITS SQ SCH ×3 (09:00→18:00)
[2020-04-07] MEDS ORDERED: 0.9 % Sodium Chloride 1,000 ML ONE (13:03)
[2020-04-07] MEDS ORDERED: *HR* Midazolam HCl 2 MG/2 ML VIAL IVP ONE (13:13)
[2020-04-07] MEDS ORDERED: *HR* FentaNYL (PF) 100 MCG/2 ML VIAL IVP ONE (13:13)
[2020-04-07] MEDS ORDERED: *HR* FentaNYL (PF) 100 MCG/2 ML VIAL ONE (13:14)
[2020-04-07] MEDS ORDERED: *HR* Midazolam HCl 2 MG/2 ML VIAL ONE (13:14)
[2020-04-07 14:57] LABS: Magnesium 2.1 mg/dL (1.6-2.6); Potassium 3.4 mEq/L (3.5-5.1)
[2020-04-07] MEDS ORDERED: Vancomycin 1,500 MG/265 ML IV.SOLN IVPB SCH (17:00)
[2020-04-08] MEDS ORDERED: Melatonin 3 MG TABLET PO PRN ×2 (01:28→12:55)
[2020-04-08] MEDS: Ipratropium/Albuterol Neb 3 ML IH SCH ×5 (03:49→20:07)
[2020-04-08 04:46] LABS: Basophils % 0.2 %; Eosinophils % 0.2 %; Immature Granulocytes % 3.4 % (0-4); Lymphocytes # 0.9 K/mcL (0.6-4.6); Lymphocytes % 4.8 %; Mean Corpuscular HGB Conc 33.3 g/dL (31.6-35.5); Mean Corpuscular Hemoglobin 28.7 pg (28.0-33.3); Mean Platelet Volume 10.2 fL (9.4-12.4); Monocytes % 5.2 %; Platelet Count 129 K/mcL (140-400); Red Blood Count 3.14 M/mcL (4.19-5.50); Red Cell Distribution Width 15.1 % (11.5-14.5); Segmented Neutrophils % 86.2 %; White Blood Count 18.5 K/mcL (4.3-11.1)
[2020-04-08 05:06] LABS: Calcium 8.2 mg/dL (8.6-10.3); Potassium 3.4 mEq/L (3.5-5.1)
[2020-04-08] MEDS: Insulin LISPRO 300 UNITS/3 ML VIAL SQ SCH ×3 (05:33→20:35)
[2020-04-08] MEDS: Loratadine 10 MG TABLET PO SCH (07:59)
[2020-04-08] MEDS: cefTRIAXone 1,000 MG in Water for inj. (sterile) 10 ML IVP SCH (07:59)
[2020-04-08] MEDS: Insulin DETEMIR 100 UNIT/ML X5UNITS SQ SCH (08:01)
[2020-04-08] MEDS ORDERED: Pantoprazole 40 MG VIAL IVP SCH (09:00)
[2020-04-08] MEDS: Ringers Solution, Lactated 1,000 ML IVC SCH ×2 (09:22→22:18)
[2020-04-08] MEDS ORDERED: cefTRIAXone 1,000 MG in Water for inj. (sterile) 10 ML IVP ONE (10:53)
[2020-04-08] MEDS ORDERED: Insulin LISPRO 300 UNITS/3 ML VIAL SQ SCH ×2 (11:30→21:00)
[2020-04-08] MEDS ORDERED: GuaiFENesin Liq 200 MG/10 ML UDC PO PRN ×2 (11:48→12:55)
[2020-04-08] MEDS ORDERED: hydrOXYzine pamoate 25 MG CAPSULE PO PRN (12:55)
[2020-04-08] MEDS ORDERED: polyethylene glycoL 3350 17 GM POWD.PACK PO PRN (12:55)
[2020-04-08] MEDS ORDERED: Albuterol 2.5 MG/3 ML NEBULIZER IH PRN (12:55)
[2020-04-08] MEDS ORDERED: Dextrose Gel 15 GM/37.5 ML TUBE PO PRN ×2 (12:55)
[2020-04-08] MEDS ORDERED: Nitroglycerin 0.4 MG TAB.SUBL SL PRN (12:55)
[2020-04-08] MEDS ORDERED: Naloxone 0.4 MG/ML INJ IVP PRN (12:55)
[2020-04-08] MEDS ORDERED: D5% in Water 1,000 ML IVC PRN (12:55)
[2020-04-08] MEDS ORDERED: *HR* Dextrose 50 % in Water (Vial) 50 ML VIAL IVP PRN (12:55)
[2020-04-08] MEDS ORDERED: Nystatin Cream 15 GM TUBE TP PRN (12:55)
[2020-04-08] MEDS ORDERED: Ondansetron 4 MG/2 ML VIAL ONE (16:30)
[2020-04-08] MEDS ORDERED: Ringers Solution, Lactated 1,000 ML IVC SCH (16:30)
[2020-04-08] MEDS: Ondansetron 4 MG/2 ML VIAL IVP PRN ×2 (16:31→16:45)
[2020-04-08] MEDS ORDERED: Acetaminophen 325 MG TABLET PO PRN (16:57)
[2020-04-08] MEDS ORDERED: Insulin DETEMIR 100 UNIT/ML X5UNITS SQ SCH ×2 (18:00→21:00)
[2020-04-08] MEDS: *HR* Promethazine 25 MG/ML VIAL IVP PRN (20:20)
[2020-04-08] MEDS: Lactobacillus 1 EACH CAP.SPRINK PO SCH (20:21)
[2020-04-08] MEDS ORDERED: Lactobacillus 1 EACH CAP.SPRINK PO SCH (21:00)
[2020-04-09] MEDS: Ipratropium/Albuterol Neb 3 ML IH SCH ×7 (00:24→23:01)
[2020-04-09] MEDS: Ondansetron 4 MG/2 ML VIAL IVP PRN ×3 (05:27→23:17)
[2020-04-09] MEDS: Ringers Solution, Lactated 1,000 ML IVC SCH ×4 (05:28→23:18)
[2020-04-09 05:55] LABS: Eosinophils % 0.1 %; Hematocrit 31.4 % (37.5-50.1); Hemoglobin 9.9 g/dL (12.9-16.9); Immature Granulocytes % 0.8 % (0-4); Mean Corpuscular HGB Conc 31.5 g/dL (31.6-35.5); Platelet Count 119 K/mcL (140-400)
[2020-04-09 05:57] LABS: Basophils % 0.2 %; Immature Platelets 7.2 % (1.1-6.1); Lymphocytes % 6.9 %; Mean Corpuscular Hemoglobin 27.4 pg (28.0-33.3); Mean Platelet Volume 10.9 fL (9.4-12.4); Monocytes # 0.5 K/mcL (0.0-1.3); Monocytes % 3.1 %; Neutrophils # 13.1 K/mcL (1.6-8.9); Red Blood Count 3.61 M/mcL (4.19-5.50); Red Cell Distribution Width 15.5 % (11.5-14.5); Segmented Neutrophils % 88.9 %; White Blood Count 14.7 K/mcL (4.3-11.1)
[2020-04-09 06:15] LABS: Calcium 8.6 mg/dL (8.6-10.3); Potassium 3.6 mEq/L (3.5-5.1)
[2020-04-09] MEDS: Lactobacillus 1 EACH CAP.SPRINK PO SCH ×2 (08:04→23:15)
[2020-04-09] MEDS: Insulin LISPRO 300 UNITS/3 ML VIAL SQ SCH ×4 (08:15→23:16)
[2020-04-09] MEDS ORDERED: Isosorbide MONOnitrate (24 HR) 30 MG TAB.ER.24H PO SCH ×2 (09:00)
[2020-04-09] MEDS ORDERED: Insulin DETEMIR 100 UNIT/ML X5UNITS SQ SCH (09:00)
[2020-04-09] MEDS ORDERED: Loratadine 10 MG TABLET PO SCH (09:00)
[2020-04-09] MEDS ORDERED: cefTRIAXone 2,000 MG in Water for inj. (sterile) 20 ML IVP SCH ×3 (09:00)
[2020-04-09] MEDS ORDERED: Tiotropium 18 MCG inhalation IH SCH ×2 (10:00)
[2020-04-09 10:14] LABS: Magnesium 1.6 mg/dL (1.6-2.6)
[2020-04-09 10:18] LABS: Troponin I 0.09 ng/mL (< 0.04)
[2020-04-09] MEDS ORDERED: Aspirin 81 MG TAB.CHEW PO SCH (16:45)
[2020-04-09] MEDS ORDERED: METOPROLOL SUCCINATE 50 MG PO SCH (16:45)
[2020-04-09 16:47] LABS: Troponin I 0.13 ng/mL (< 0.04)
[2020-04-10 03:26] LABS: Basophils % 0.2 %; Eosinophils % 0.2 %; Hematocrit 28.4 % (37.5-50.1); Immature Granulocytes % 1.1 % (0-4); Lymphocytes # 0.8 K/mcL (0.6-4.6); Lymphocytes % 5.1 %; Mean Corpuscular HGB Conc 31.7 g/dL (31.6-35.5); Mean Corpuscular Hemoglobin 27.3 pg (28.0-33.3); Mean Corpuscular Volume 86.1 fL (83.0-100.0); Mean Platelet Volume 10.3 fL (9.4-12.4); Monocytes # 0.9 K/mcL (0.0-1.3); Monocytes % 5.3 %; Neutrophils # 14.3 K/mcL (1.6-8.9); Platelet Count 152 K/mcL (140-400); Red Cell Distribution Width 15.5 % (11.5-14.5); Segmented Neutrophils % 88.1 %; White Blood Count 16.2 K/mcL (4.3-11.1)
[2020-04-10 03:41] LABS: Calcium 8.1 mg/dL (8.6-10.3); Potassium 3.1 mEq/L (3.5-5.1)
[2020-04-10] MEDS: Ipratropium/Albuterol Neb 3 ML IH SCH ×6 (03:43→23:44)
[2020-04-10] MEDS: Ringers Solution, Lactated 1,000 ML IVC SCH ×3 (06:23→21:57)
[2020-04-10] MEDS: *HR* Promethazine 25 MG/ML VIAL IVP PRN (06:24)
[2020-04-10] MEDS ORDERED: Potassium Chloride 40 MEQ, Lidocaine 1% 2 ML in 0.9 % Sodium Chloride 500 ML IVPB ONE ×2 (07:22→07:33)
[2020-04-10] MEDS ORDERED: hydrOXYzine pamoate 25 MG CAPSULE PO PRN (07:33)
[2020-04-10] MEDS ORDERED: D5% in Water 1,000 ML IVC PRN (07:33)
[2020-04-10] MEDS ORDERED: Ondansetron 4 MG/2 ML VIAL IVP PRN (07:33)
[2020-04-10] MEDS ORDERED: *HR* Promethazine 25 MG/ML VIAL IVP PRN (07:33)
[2020-04-10] MEDS ORDERED: polyethylene glycoL 3350 17 GM POWD.PACK PO PRN (07:33)
[2020-04-10] MEDS ORDERED: Nitroglycerin 0.4 MG TAB.SUBL SL PRN (07:33)
[2020-04-10] MEDS ORDERED: Naloxone 0.4 MG/ML INJ IVP PRN (07:33)
[2020-04-10] MEDS ORDERED: *HR* Dextrose 50 % in Water (Vial) 50 ML VIAL IVP PRN (07:33)
[2020-04-10] MEDS ORDERED: Acetaminophen 325 MG TABLET PO PRN (07:33)
[2020-04-10] MEDS ORDERED: Melatonin 3 MG TABLET PO PRN (07:33)
[2020-04-10] MEDS ORDERED: Albuterol 2.5 MG/3 ML NEBULIZER IH PRN (07:33)
[2020-04-10] MEDS ORDERED: Dextrose Gel 15 GM/37.5 ML TUBE PO PRN ×2 (07:33)
[2020-04-10] MEDS ORDERED: GuaiFENesin Liq 200 MG/10 ML UDC PO PRN (07:33)
[2020-04-10] MEDS ORDERED: Nystatin Cream 15 GM TUBE TP PRN (07:33)
[2020-04-10 07:47] LABS: Magnesium 1.8 mg/dL (1.6-2.6); Phosphorous 3.5 mg/dL (2.7-4.5)
[2020-04-10] MEDS ORDERED: Isosorbide MONOnitrate (24 HR) 30 MG TAB.ER.24H PO SCH (09:00)
[2020-04-10] MEDS ORDERED: cefTRIAXone 2,000 MG in Water for inj. (sterile) 20 ML IVP SCH (09:00)
[2020-04-10] MEDS: Aspirin 81 MG TAB.CHEW PO SCH (09:28)
[2020-04-10] MEDS: Lactobacillus 1 EACH CAP.SPRINK PO SCH ×2 (09:28→21:54)
[2020-04-10] MEDS: Insulin DETEMIR 100 UNIT/ML X5UNITS SQ SCH (09:29)
[2020-04-10] MEDS: Loratadine 10 MG TABLET PO SCH (09:29)
[2020-04-10] MEDS ORDERED: Perflutren Lipid Microsphere 1.3 ML in 0.9 % Sodium Chloride 8.7 ML IVP PRN (09:34)
[2020-04-10] MEDS ORDERED: Tiotropium 18 MCG inhalation IH SCH (10:00)
[2020-04-10] MEDS ORDERED: Isosorbide MONOnitrate (24 HR) 30 MG TAB.ER.24H PO ONE (10:27)
[2020-04-10] MEDS: Insulin LISPRO 300 UNITS/3 ML VIAL SQ SCH ×4 (11:14→21:57)
[2020-04-10] MEDS ORDERED: Isovue-370 500 ML BOTTLE PO ONE (15:42)
[2020-04-10] MEDS ORDERED: Vancomycin 1,750 MG in 0.9 % Sodium Chloride 250 ML IVPB SCH (17:00)
[2020-04-10] MEDS: Piperacillin/Tazobactam 3.375 GM in 0.9 % Sodium Chloride Mini Bag 100 ML IVPB SCH (17:44)
[2020-04-10] MEDS ORDERED: Cefepime HCl 1,000 MG in Water for inj. (sterile) 10 ML IVP SCH (18:00)
[2020-04-11] MEDS: Piperacillin/Tazobactam 3.375 GM in 0.9 % Sodium Chloride Mini Bag 100 ML IVPB SCH ×3 (03:05→17:34)
[2020-04-11 03:22] LABS: Basophils % 0.2 %; Eosinophils # 0.1 K/mcL (0.0-0.6); Eosinophils % 1.3 %; Hematocrit 28.2 % (37.5-50.1); Hemoglobin 8.7 g/dL (12.9-16.9); Immature Granulocytes % 1.8 % (0-4); Lymphocytes # 1.2 K/mcL (0.6-4.6); Lymphocytes % 11.2 %; Mean Corpuscular HGB Conc 30.9 g/dL (31.6-35.5); Mean Corpuscular Hemoglobin 27.2 pg (28.0-33.3); Mean Corpuscular Volume 88.1 fL (83.0-100.0); Mean Platelet Volume 10.6 fL (9.4-12.4); Monocytes # 0.8 K/mcL (0.0-1.3); Monocytes % 7.3 %; Nucleated Red Blood Cells 0.2 /100 WBC (0); Platelet Count 144 K/mcL (140-400); Red Cell Distribution Width 15.7 % (11.5-14.5); Segmented Neutrophils % 78.2 %; White Blood Count 10.3 K/mcL (4.3-11.1)
[2020-04-11 03:44] LABS: Calcium 7.8 mg/dL (8.6-10.3); Potassium 2.8 mEq/L (3.5-5.1)
[2020-04-11] MEDS: Ipratropium/Albuterol Neb 3 ML IH SCH ×6 (03:54→23:11)
[2020-04-11] MEDS: Aspirin 81 MG TAB.CHEW PO SCH (08:10)
[2020-04-11] MEDS: Lactobacillus 1 EACH CAP.SPRINK PO SCH ×2 (08:10→23:01)
[2020-04-11] MEDS: Isosorbide MONOnitrate (24 HR) 30 MG TAB.ER.24H PO SCH (08:10)
[2020-04-11] MEDS: Loratadine 10 MG TABLET PO SCH (08:11)
[2020-04-11] MEDS: Insulin DETEMIR 100 UNIT/ML X5UNITS SQ SCH (08:12)
[2020-04-11] MEDS: Ringers Solution, Lactated 1,000 ML IVC SCH ×2 (08:12→15:11)
[2020-04-11] MEDS: Insulin LISPRO 300 UNITS/3 ML VIAL SQ SCH ×4 (08:13→23:02)
[2020-04-11] MEDS ORDERED: Potassium Chloride 40 MEQ, Lidocaine 1% 2 ML in 0.9 % Sodium Chloride 500 ML IVPB ONE (12:40)
[2020-04-12] MEDS: Piperacillin/Tazobactam 3.375 GM in 0.9 % Sodium Chloride Mini Bag 100 ML IVPB SCH ×3 (01:33→17:59)
[2020-04-12 03:47] LABS: Basophils % 0.4 %; Eosinophils # 0.2 K/mcL (0.0-0.6); Eosinophils % 2.5 %; Hematocrit 26.7 % (37.5-50.1); Hemoglobin 8.7 g/dL (12.9-16.9); Immature Granulocytes % 2.7 % (0-4); Lymphocytes # 1.2 K/mcL (0.6-4.6); Lymphocytes % 12.7 %; Mean Corpuscular HGB Conc 32.6 g/dL (31.6-35.5); Mean Corpuscular Hemoglobin 28.5 pg (28.0-33.3); Mean Corpuscular Volume 87.5 fL (83.0-100.0); Mean Platelet Volume 10.2 fL (9.4-12.4); Monocytes # 0.8 K/mcL (0.0-1.3); Monocytes % 7.9 %; Neutrophils # 7.2 K/mcL (1.6-8.9); Nucleated Red Blood Cells 0.2 /100 WBC (0); Platelet Count 169 K/mcL (140-400); Red Blood Count 3.05 M/mcL (4.19-5.50); Red Cell Distribution Width 15.6 % (11.5-14.5); Segmented Neutrophils % 73.8 %; White Blood Count 9.8 K/mcL (4.3-11.1)
[2020-04-12 03:49] LABS: Albumin 2.3 g/dL (3.5-5.7); Albumin/Globulin Ratio 0.9 (1.1-2.2); Bilirubin,Total 0.5 mg/dL (0.3-1.0); Calcium 7.7 mg/dL (8.6-10.3); Globulin 2.7 g/dL (2.4-3.5); Potassium 2.8 mEq/L (3.5-5.1)
[2020-04-12] MEDS: Ipratropium/Albuterol Neb 3 ML IH SCH ×6 (04:06→23:32)
[2020-04-12] MEDS: Ringers Solution, Lactated 1,000 ML IVC SCH ×2 (06:34→12:17)
[2020-04-12] MEDS ORDERED: Potassium Chloride Elixir 20 MEQ/15 ML UDC PO SCH (09:00)
[2020-04-12] MEDS: Aspirin 81 MG TAB.CHEW PO SCH (09:20)
[2020-04-12] MEDS: Isosorbide MONOnitrate (24 HR) 30 MG TAB.ER.24H PO SCH (09:20)
[2020-04-12] MEDS: Insulin LISPRO 300 UNITS/3 ML VIAL SQ SCH ×4 (09:21→22:19)
[2020-04-12] MEDS: Lactobacillus 1 EACH CAP.SPRINK PO SCH ×2 (09:21→22:33)
[2020-04-12] MEDS: Insulin DETEMIR 100 UNIT/ML X5UNITS SQ SCH (09:21)
[2020-04-12] MEDS: Loratadine 10 MG TABLET PO SCH (09:21)
[2020-04-12] MEDS: Bismuth Subsalicylate 120 ML ORAL SUSPENSION PO PRN (18:01)
[2020-04-13] MEDS: Piperacillin/Tazobactam 3.375 GM in 0.9 % Sodium Chloride Mini Bag 100 ML IVPB SCH ×3 (01:31→17:07)
[2020-04-13] MEDS: Ipratropium/Albuterol Neb 3 ML IH SCH ×5 (03:24→19:36)
[2020-04-13 05:59] LABS: Basophils % 0.4 %; Eosinophils # 0.2 K/mcL (0.0-0.6); Eosinophils % 2.1 %; Hematocrit 27.8 % (37.5-50.1); Immature Granulocytes % 1.9 % (0-4); Lymphocytes # 1.3 K/mcL (0.6-4.6); Lymphocytes % 12.7 %; Mean Corpuscular HGB Conc 32.4 g/dL (31.6-35.5); Mean Corpuscular Hemoglobin 27.8 pg (28.0-33.3); Mean Corpuscular Volume 85.8 fL (83.0-100.0); Mean Platelet Volume 10.1 fL (9.4-12.4); Monocytes # 0.6 K/mcL (0.0-1.3); Monocytes % 5.3 %; Neutrophils # 8.1 K/mcL (1.6-8.9); Platelet Count 196 K/mcL (140-400); Red Blood Count 3.24 M/mcL (4.19-5.50); Red Cell Distribution Width 15.3 % (11.5-14.5); Segmented Neutrophils % 77.6 %; White Blood Count 10.5 K/mcL (4.3-11.1)
[2020-04-13 06:20] LABS: Albumin 2.3 g/dL (3.5-5.7); Albumin/Globulin Ratio 0.8 (1.1-2.2); Bilirubin,Total 0.6 mg/dL (0.3-1.0); Calcium 7.8 mg/dL (8.6-10.3); Globulin 2.8 g/dL (2.4-3.5); Potassium 2.7 mEq/L (3.5-5.1); Total Protein 5.1 g/dL (6.4-8.9)
[2020-04-13] MEDS ORDERED: Potassium Chloride 40 MEQ, Lidocaine 1% 2 ML in 0.9 % Sodium Chloride 500 ML IVPB ONE (07:15)
[2020-04-13] MEDS: Lactobacillus 1 EACH CAP.SPRINK PO SCH ×2 (08:32→19:59)
[2020-04-13] MEDS: Aspirin 81 MG TAB.CHEW PO SCH (08:33)
[2020-04-13] MEDS: Loratadine 10 MG TABLET PO SCH (08:33)
[2020-04-13] MEDS: Isosorbide MONOnitrate (24 HR) 30 MG TAB.ER.24H PO SCH (08:34)
[2020-04-13] MEDS: Insulin DETEMIR 100 UNIT/ML X5UNITS SQ SCH (08:43)
[2020-04-13] MEDS: Ringers Solution, Lactated 1,000 ML IVC SCH (09:06)
[2020-04-13] MEDS: Insulin LISPRO 300 UNITS/3 ML VIAL SQ SCH ×4 (10:32→19:58)
[2020-04-13] MEDS: Bismuth Subsalicylate 120 ML ORAL SUSPENSION PO PRN (12:02)
[2020-04-13] MEDS ORDERED: Ipratropium/Albuterol Neb 3 ML IH PRN (19:47)
[2020-04-14] MEDS: Piperacillin/Tazobactam 3.375 GM in 0.9 % Sodium Chloride Mini Bag 100 ML IVPB SCH ×2 (01:06→09:04)
[2020-04-14 06:28] LABS: Basophils # 0.1 K/mcL (0.0-0.2); Basophils % 0.4 %; Eosinophils # 0.4 K/mcL (0.0-0.6); Eosinophils % 2.9 %; Hematocrit 27.5 % (37.5-50.1); Hemoglobin 8.7 g/dL (12.9-16.9); Immature Granulocytes % 1.1 % (0-4); Lymphocytes # 1.5 K/mcL (0.6-4.6); Lymphocytes % 11.7 %; Mean Corpuscular HGB Conc 31.6 g/dL (31.6-35.5); Mean Corpuscular Hemoglobin 27.2 pg (28.0-33.3); Mean Corpuscular Volume 85.9 fL (83.0-100.0); Mean Platelet Volume 9.8 fL (9.4-12.4); Monocytes # 0.6 K/mcL (0.0-1.3); Monocytes % 4.5 %; Platelet Count 248 K/mcL (140-400); Red Cell Distribution Width 15.3 % (11.5-14.5); Segmented Neutrophils % 79.4 %; White Blood Count 12.6 K/mcL (4.3-11.1)
[2020-04-14 06:54] LABS: Albumin 2.4 g/dL (3.5-5.7); Albumin/Globulin Ratio 0.8 (1.1-2.2); Bilirubin,Total 0.6 mg/dL (0.3-1.0); Calcium 7.5 mg/dL (8.6-10.3); Globulin 2.9 g/dL (2.4-3.5); Potassium 2.9 mEq/L (3.5-5.1); Total Protein 5.3 g/dL (6.4-8.9)
[2020-04-14] MEDS ORDERED: Potassium Chloride 40 MEQ, Lidocaine 1% 2 ML in 0.9 % Sodium Chloride 500 ML IVPB ONE (07:29)
[2020-04-14] MEDS: Loratadine 10 MG TABLET PO SCH (09:06)
[2020-04-14] MEDS: Aspirin 81 MG TAB.CHEW PO SCH (09:07)
[2020-04-14] MEDS: Lactobacillus 1 EACH CAP.SPRINK PO SCH (09:07)
[2020-04-14] MEDS: Isosorbide MONOnitrate (24 HR) 30 MG TAB.ER.24H PO SCH (09:12)
[2020-04-14] MEDS: Insulin LISPRO 300 UNITS/3 ML VIAL SQ SCH ×2 (09:20→13:46)
[2020-04-14] MEDS: Insulin DETEMIR 100 UNIT/ML X5UNITS SQ SCH (09:41)
[2020-04-14 11:31] VITALS: BP 134/71
== END 2020-04-14 14:27 | disposition home health service (06) | DRG 698 ==
LOC: EMEROOARM 14:34 → ICNU 14:34 → SUATTDRO 18:29 → ICNU 19:01 → 2ANU 04-09 18:56
PROVIDERS: ADMIT Internal Medicine; ATTEND Internal Medicine

== ENCOUNTER 2020-04-16 19:51 | Observation (INO) ==
[2020-04-16] MEDS ORDERED: 0.9 % Sodium Chloride 1,000 ML IVC ONE (20:52)
[2020-04-16] MEDS ORDERED: Isovue-370 500 ML BOTTLE IVP ONE (20:53)
[2020-04-16] MEDS ORDERED: Nystatin POWDER 30 GM BOTTLE TP ONE (20:53)
[2020-04-16 21:24] LABS: Basophils % 0.3 %; Eosinophils # 0.2 K/mcL (0.0-0.6); Eosinophils % 1.4 %; Hematocrit 30.6 % (37.5-50.1); Hemoglobin 9.7 g/dL (12.9-16.9); INR 1.7; Immature Granulocytes % 0.8 % (0-4); Lymphocytes # 1.1 K/mcL (0.6-4.6); Lymphocytes % 9.1 %; Mean Corpuscular HGB Conc 31.7 g/dL (31.6-35.5); Mean Corpuscular Hemoglobin 27.6 pg (28.0-33.3); Mean Corpuscular Volume 87.2 fL (83.0-100.0); Mean Platelet Volume 9.8 fL (9.4-12.4); Monocytes # 0.6 K/mcL (0.0-1.3); Monocytes % 4.5 %; Neutrophils # 10.5 K/mcL (1.6-8.9); Platelet Count 292 K/mcL (140-400); Prothrombin Time 18.9 Seconds (9.4-12.1); Red Blood Count 3.51 M/mcL (4.19-5.50); Red Cell Distribution Width 15.3 % (11.5-14.5); Segmented Neutrophils % 83.9 %; White Blood Count 12.6 K/mcL (4.3-11.1)
[2020-04-16 21:46] LABS: Alanine Aminotransferase 36 Units/L (7-52); Albumin 2.7 g/dL (3.5-5.7); Albumin/Globulin Ratio 0.9 (1.1-2.2); Alkaline Phosphatase 66 Units/L (34-104); Amylase 28 Units/L (29-103); Aspartate Amino Transferase 27 Units/L (13-39); BUN/Creatinine Ratio 8 (6-26); Bilirubin,Direct 0.1 mg/dL (0.0-0.2); Bilirubin,Indirect 0.4 mg/dL (0.0-1.0); Bilirubin,Total 0.5 mg/dL (0.3-1.0); Blood Urea Nitrogen 10 mg/dL (8-23); Calcium 7.6 mg/dL (8.6-10.3); Carbon Dioxide 25 mEq/L (23-29); Chloride 103 mEq/L (98-107); Globulin 3.1 g/dL (2.4-3.5); Glucose 115 mg/dL (70-105); Lipase 14 Units/L (11-82); Osmolality,Calculated 286 (280-300); Potassium 3.4 mEq/L (3.5-5.1); Sodium 138 mEq/L (136-145); Total Protein 5.8 g/dL (6.4-8.9); Troponin I 1.08 ng/mL (< 0.04); eGFR For African Americans > 60 (> 60); eGFR For Non-African Americans 57 (> 60)
[2020-04-16] MEDS ORDERED: Aspirin 325 MG TABLET PO ONE (21:47)
[2020-04-16 22:24] LABS: Bacteria,Urine Few per hpf (None-Few); Bilirubin,Urine Negative (Negative); Blood,Urine Moderate (Negative); Budding Yeast,Urine Few per hpf (None Seen); Clarity,Urine Turbid (Clear); Color,Urine Yellow (Yellow); Glucose,Urine (UA) Normal (Normal); Ketones,Urine Negative (Negative); Leukocyte Esterase,Urine Large (Negative); Mucus,Urine Few per lpf (None-Few); Nitrite,Urine Negative (Negative); Protein,Urine >=300 mg/dL (Neg-Trace); RBC,Urine 15-30 per hpf (0-3); Specific Gravity,Urine 1.012 (1.010-1.025); Squamous Epithelial Cell,Urine Few per hpf (None-Few); Transitional Epi Cells,Urine Few per hpf (None-Few); Urobilinogen,Urine Normal (Normal); WBC,Urine TNTC per hpf (0-3)
[2020-04-16] MEDS ORDERED: *HR* Heparin 5,000 UNIT/ML VIAL IVP ONE (22:41)
[2020-04-16] MEDS ORDERED: *HR* Heparin 5,000 UNIT/ML VIAL IVP PRN ×2 (22:41)
[2020-04-16] MEDS ORDERED: Heparin 25,000UNIT/250ML 1/2NS 25,000 UNIT/250 ML IV.SOLN IVC SCH (22:45)
[2020-04-17] MEDS ORDERED: Naloxone 0.4 MG/ML INJ IVP PRN (00:56)
[2020-04-17] MEDS ORDERED: Ondansetron 4 MG/2 ML VIAL IVP PRN (00:56)
[2020-04-17] MEDS ORDERED: Ringers Solution, Lactated 1,000 ML IVC SCH ×2 (01:00→08:34)
[2020-04-17 02:29] LABS: Basophils % 0.3 %; Eosinophils # 0.3 K/mcL (0.0-0.6); Eosinophils % 2.3 %; Hematocrit 27.8 % (37.5-50.1); Hemoglobin 8.9 g/dL (12.9-16.9); Immature Granulocytes % 0.8 % (0-4); Lymphocytes # 1.9 K/mcL (0.6-4.6); Lymphocytes % 17.6 %; Mean Corpuscular Hemoglobin 28.1 pg (28.0-33.3); Mean Corpuscular Volume 87.7 fL (83.0-100.0); Mean Platelet Volume 10.1 fL (9.4-12.4); Monocytes # 0.7 K/mcL (0.0-1.3); Monocytes % 6.3 %; Neutrophils # 7.8 K/mcL (1.6-8.9); Platelet Count 271 K/mcL (140-400); Red Blood Count 3.17 M/mcL (4.19-5.50); Red Cell Distribution Width 15.3 % (11.5-14.5); Segmented Neutrophils % 72.7 %; White Blood Count 10.7 K/mcL (4.3-11.1)
[2020-04-17 02:31] LABS: INR 1.8; Prothrombin Time 20.4 Seconds (9.4-12.1)
[2020-04-17 02:48] LABS: Alanine Aminotransferase 32 Units/L (7-52); Albumin 2.4 g/dL (3.5-5.7); Albumin/Globulin Ratio 0.8 (1.1-2.2); Alkaline Phosphatase 58 Units/L (34-104); Aspartate Amino Transferase 24 Units/L (13-39); BUN/Creatinine Ratio 8 (6-26); Bilirubin,Total 0.4 mg/dL (0.3-1.0); Blood Urea Nitrogen 9 mg/dL (8-23); Calcium 7.3 mg/dL (8.6-10.3); Carbon Dioxide 25 mEq/L (23-29); Chloride 106 mEq/L (98-107); Globulin 2.9 g/dL (2.4-3.5); Glucose 101 mg/dL (70-105); Magnesium 1.5 mg/dL (1.6-2.6); Osmolality,Calculated 289 (280-300); Phosphorous 3.4 mg/dL (2.7-4.5); Sodium 140 mEq/L (136-145); Total Protein 5.3 g/dL (6.4-8.9); eGFR For African Americans > 60 (> 60); eGFR For Non-African Americans > 60 (> 60)
[2020-04-17] MEDS ORDERED: Dextrose Gel 15 GM/37.5 ML TUBE PO PRN ×2 (03:01)
[2020-04-17] MEDS ORDERED: D5% in Water 1,000 ML IVC PRN (03:01)
[2020-04-17] MEDS ORDERED: *HR* Dextrose 50 % in Water (Vial) 50 ML VIAL IVP PRN (03:01)
[2020-04-17] MEDS ORDERED: hydrOXYzine pamoate 25 MG CAPSULE PO PRN (03:04)
[2020-04-17] MEDS ORDERED: Nystatin Cream 15 GM TUBE TP PRN (03:04)
[2020-04-17] MEDS ORDERED: Hydrocortisone Acetate 25 MG RECTAL SUPPOSITORY RC PRN (03:04)
[2020-04-17] MEDS ORDERED: Fluconazole 150 MG TABLET PO ONE (03:09)
[2020-04-17] MEDS ORDERED: Potassium Chloride 40 MEQ, Lidocaine 1% 2 ML in D5% in Water 500 ML IVPB ONE (04:45)
[2020-04-17] MEDS ORDERED: Potassium Chloride 40 MEQ, Lidocaine 1% 2 ML in 0.9 % Sodium Chloride 500 ML IVPB ONE (04:45)
[2020-04-17] MEDS: Insulin LISPRO 300 UNITS/3 ML VIAL SQ SCH ×2 (06:15→14:25)
[2020-04-17] MEDS ORDERED: Isovue-370 500 ML BOTTLE IVP ONE (06:24)
[2020-04-17 06:25] LABS: Hematocrit 27.6 % (37.5-50.1); Hemoglobin 8.6 g/dL (12.9-16.9)
[2020-04-17] MEDS ORDERED: Cefepime HCl 1,000 MG in Water for inj. (sterile) 10 ML IVP SCH (08:00)
[2020-04-17 08:20] LABS: Heparin anti-factor XA UFH 0.32 IU/mL (0.30-0.70); INR 1.7; Prothrombin Time 19.3 Seconds (9.4-12.1)
[2020-04-17] MEDS ORDERED: Magnesium Sulfate 1 GM/102 ML PIGGYBACK IVPB ONE ×2 (08:30→14:11)
[2020-04-17] MEDS ORDERED: Metoprolol XL (24 HR) Succ 50 MG TAB.ER.24H PO SCH ×2 (09:00→21:00)
[2020-04-17] MEDS ORDERED: Lactobacillus 1 EACH CAP.SPRINK PO SCH (09:00)
[2020-04-17] MEDS ORDERED: Aspirin Enteric Coated 81 MG Tablet PO SCH (09:00)
[2020-04-17] MEDS ORDERED: Cholecalciferol (D-3) 1,000 UNIT (25MCG) TABLET PO SCH (09:00)
[2020-04-17] MEDS ORDERED: Tiotropium 18 MCG inhalation IH SCH (09:00)
[2020-04-17] MEDS ORDERED: Isosorbide MONOnitrate (24 HR) 30 MG TAB.ER.24H PO SCH (09:00)
[2020-04-17] MEDS ORDERED: Vancomycin Oral Soln 125 MG/2.5 ML UDC PO SCH (09:00)
[2020-04-17] MEDS ORDERED: levoFLOXacin 750 MG/150 ML 750 MG/150 ML BAG IVPB SCH (09:00)
[2020-04-17 11:10] LABS: Adenovirus Not Detected (Not Detect); Coronavirus 229E Not Detected (Not Detect); Coronavirus HKU1 Not Detected (Not Detect); Coronavirus NL63 Not Detected (Not Detect); Coronavirus OC43 Not Detected (Not Detect); Human Metapneumovirus Not Detected (Not Detect); Human Rhinovirus/Enterovirus Not Detected (Not Detect); Influenza A Subtype 2009 H1 Not Detected (Not Detect); Influenza B Not Detected (Not Detect); Parainfluenza Virus 1 Not Detected (Not Detect); Parainfluenza Virus 2 Not Detected (Not Detect); Parainfluenza Virus 3 Not Detected (Not Detect); Parainfluenza Virus 4 Not Detected (Not Detect); SARS-CoV-2 Not Detected (Not Detect)
[2020-04-17 11:11] LABS: Bordetella Pertussis Not Detected (Not Detect); Chlamydophila pneumoniae Not Detected (Not Detect); Mycoplasma pneumoniae Not Detected (Not Detect); Respiratory Syncytial Virus Not Detected (Not Detect)
[2020-04-17 12:45] VITALS: BP 156/75
[2020-04-17] MEDS ORDERED: *HR* Propofol 200 MG/20 ML VIAL IVP ONE (13:10)
[2020-04-17] MEDS ORDERED: Lidocaine -MPF 2% 2 ML VIAL ONE (13:11)
[2020-04-17] MEDS ORDERED: MetroNIDAZOLE 500 MG/100 ML 500 MG/100 ML BAG IVPB SCH (16:00)
[2020-04-17] MEDS ORDERED: Sucralfate 1 GM TABLET PO SCH (16:30)
[2020-04-17] MEDS ORDERED: Melatonin 3 MG TABLET PO SCH (21:00)
[2020-04-17] MEDS ORDERED: Insulin DETEMIR 100 UNIT/ML X5UNITS SQ SCH (21:00)
[2020-04-17] MEDS ORDERED: *HR* Amiodarone 200 MG TABLET PO SCH (21:00)
== END 2020-04-17 18:40 | disposition expired ==
LOC: EMEROOARM 19:51 → 2ANU 19:51 → SUATTDRO 04-17 00:20 → 2ANU 04-17 01:00
PROVIDERS: ADMIT Family Medicine; ATTEND Internal Medicine